=== PATIENT | female | born 1955 | race Caucasian/White ===

== ENCOUNTER 2017-10-13 01:35 | Emergency (ER) | payer BC ==
[~2017-10-13] VITALS: Ht 165.1 cm; Wt 95.2 kg
[~2017-10-13 01:35] MED LIST: ASPIR 8181 MG; AZITHROMYCIN250 MG PO; NORCO 5-325 TA1 EACH PO; ZOFRAN ODT4 MG PO
[2017-10-13] MEDS ORDERED: BENADRYL25 MG PO (02:16)
--- NOTE | 2017-10-13 17:58 | EKG ---
[facility] [address] [facility] [place], [place] [address] Signed Normal sinus rhythm Possible Left atrial enlargement Nonspecific ST and T wave abnormality Abnormal ECG No previous ECGs available Confirmed by WILLA LASSITER MD ([id number]) on 10/13/2017 5:58:28 PM Electronically Signed By: WILLA LASSITER MD 10/13/17 1758 PATIENT NAME: NICANOR SALDANA Electrocardiogram DATE OF : 55 PHYSICIAN: WILLA LASSITER MD REPORT #: [id number] REPORT IS CONFIDENTIAL AND NOT TO BE RELEASED WITHOUT AUTHORIZATION
== END 2017-10-13 03:44 | disposition home or self-care (01) ==
LOC: ED 01:35
DX: R07.89 Other chest pain (principal); B34.9 Viral infection, unspecified; F17.200 Nicotine dependence, unspecified, uncomplicated; Z90.49 Acquired absence of other specified parts of digestive tract; Z98.51 Tubal ligation status; Z88.2 Allergy status to sulfonamides; Z79.82 Long term (current) use of aspirin
CPT/HCPCS: 71046; 80053; 81001; 84484; 85025; 85379; 93005; 93010; 99284

== ENCOUNTER 2021-07-15 23:31 | Emergency (ER) | payer BC ==
[~2021-07-15 23:31] MED LIST changes: +BENADRYL25 MG PO
--- NOTE | 2021-07-16 13:23 | EKG ---
[facility] [address] [facility] [place] [address] Signed Normal sinus rhythm Possible Left atrial enlargement Left anterior fascicular block T wave abnormality, consider lateral ischemia Abnormal ECG When compared with ECG of 13-OCT-2017 01:41, Left anterior fascicular block is now present Confirmed by TITUS ESPARZA DO ([id number]) on 07/16/2021 1:23:14 PM Electronically Signed By: TITUS ESPARZA DO 07/16/21 1323 PATIENT NAME: NICANOR SALDANA Electrocardiogram DATE OF : 55 PHYSICIAN: TITUS ESPARZA DO REPORT #: [id number] REPORT IS CONFIDENTIAL AND NOT TO BE RELEASED WITHOUT AUTHORIZATION
== END 2021-07-16 03:12 | disposition home or self-care (01) ==
LOC: ED 23:31
DX: R55 Syncope and collapse (principal); F17.200 Nicotine dependence, unspecified, uncomplicated; Z88.2 Allergy status to sulfonamides
CPT/HCPCS: 62270; 70450; 71045; 80053; 82945; 84157; 84484; 85025; 89051; 93005; 93010; 99285-25; J7030

== ENCOUNTER 2024-06-26 10:08 | Inpatient (IN) | payer MEDICARE ==
[~2024-06-26] VITALS: Ht 165.1 cm; Wt 66.7 kg
[2024-06-26] VITALS (7 sets, daily range): BP systolic 88–108; BP diastolic 50–72
[~2024-06-26 10:08] MED LIST changes: +ONDANSETRON ODT8 MG PO; +SEVOFLURANE 250 ML BTL INH ONE
[2024-06-26] MEDS ORDERED: PANTOPRAZOLE SODIUM 40 MG/10 ML VIAL IV ONE (10:15)
[2024-06-26] MEDS ORDERED: ondansetron HCL 4 MG/2 ML VIAL IV ONE (10:15)
[2024-06-26] MEDS ORDERED: NOREPINEPHRINE BITARTRATE 250 ML IV SCH (10:15)
[2024-06-26] MEDS ORDERED: fentaNYL citrate 100 MCG/2 ML VIAL IV ONE ×2 (10:15→12:30)
[2024-06-26 10:33] LABS: BASE EXCESS, BLOOD GAS -6.5 mmol/L (-2-2); HCO3, BLOOD GAS 16.7 mmol/L (22-26); OXYGEN RECEIVED, BLOOD GAS RA; PCO2, BLOOD GAS 22.8 mmHg (35-45); PH, BLOOD GAS 7.46 (7.35-7.45); PO2, BLOOD GAS 83 mmHg (80-100); TOTAL CO2, BLOOD GAS 17.4
[2024-06-26 10:40] LABS: BASOPHILS 0.7 % (0-2); EOSINOPHILS 0.3 % (0-6); HEMATOCRIT 35.1 % (35.0-50.0); HEMOGLOBIN 11.6 g/dL (12.0-18.0); LYMPHOCYTES 17.3 % (24-44); MCH 32.2 (27-36); MCV 97.7 fl (81-99); MONOCYTES 5.6 % (0-12); NEUTROPHILS 76.1 % (39-80); RBC 3.59 M/ul (4.3-5.7); RDW 15.6 (10.5-15.0)
[2024-06-26 10:49] LABS: INR 1.08 (0.80-1.30); PROTIME 13.6 Sec (11.2-14.2)
[2024-06-26 10:56] LABS: LACTIC ACID, BLOOD 4.8 mmol/L (0.4-2.0)
[2024-06-26 11:01] LABS: ALBUMIN 2.1 g/dL (3.4-5.0); ALBUMIN/GLOBULIN RATIO 0.66 (1.1-2.4); ANION GAP 16.7 (7-21); BILIRUBIN, TOTAL 0.3 ng/dL (0.2-1.0); BUN/CREATININE RATIO 42.7 (6.0-28.6); CALCIUM 7.8 mg/dL (8.5-10.1); CREATININE, SERUM 0.96 mg/dL (0.55-1.02); POTASSIUM 4.7 mmol/L (3.5-5.1); PROTEIN, TOTAL 5.3 g/dL (6.4-8.2)
[2024-06-26 11:04] LABS: PLATELET COUNT 188 K/uL (140-440)
[2024-06-26 11:07] LABS: ABO A; ANTIBODY SCREEN NEGATIVE; RH POSITIVE
[2024-06-26 11:15] LABS: IS CROSSMATCH COMPATIBLE
[2024-06-26] MEDS ORDERED: ADULT LOW DOSE81 MG PO (11:36)
[2024-06-26 11:40] LABS: ABO A; RH POSITIVE
[2024-06-26] MEDS ORDERED: SODIUM CHLORIDE 0.9% 1,000 ML IV PRN (12:15)
[2024-06-26] MEDS ORDERED: SUCCINYLCHOLINE IN 0.9% NACL 200 MG/10 ML SYRINGE ONE (14:57)
[2024-06-26] MEDS ORDERED: DEXAMETHASONE SOD PHOS 4 MG/ML VIAL ONE (14:57)
[2024-06-26] MEDS ORDERED: propofoL 200 MG/20 ML VIAL ONE (14:57)
[2024-06-26] MEDS ORDERED: LIDOCAINE HCL 2% 5 ML SDV ONE (14:57)
[2024-06-26] MEDS ORDERED: ROCURONIUM BROMIDE 50 MG/5 ML SYR ONE (14:57)
[2024-06-26] MEDS ORDERED: ondansetron HCL 4 MG/2 ML VIAL ONE (14:57)
[2024-06-26] MEDS ORDERED: fentaNYL citrate 100 MCG/2 ML VIAL ONE (14:57)
[2024-06-26] MEDS ORDERED: PHENYLEPHRINE HCL 10 MG/ML VIAL ONE (15:21)
[2024-06-26 16:04] LABS: IS CROSSMATCH COMPATIBLE
[2024-06-26] MEDS ORDERED: SUGAMMADEX SODIUM 200 MG/2 ML ML ONE (16:12)
--- NOTE | 2024-06-26 16:21 | CONS ---
[facility] [address] [place], [place] [address] Signed DATE OF CONSULTATION: 06/26/2024 CHIEF COMPLAINT: Rectal bleeding. HISTORY OF PRESENT ILLNESS: Nicanor is a 69-year-old female who said she has had peptic ulcer disease many, many years ago requiring upper endoscopy. She thinks she has been having rectal bleeding for about a month. For some reason, she decided to treat that with aspirin. They found her down at home in the bathroom. The EMS brought her to our local emergency room. Initially, her blood pressures were soft. She required some IV fluids and later got a unit of blood. Her hemoglobin is 11.6 at this time. The repeat hemoglobin does not appear to be back yet. Her vital signs have improved. She is alert, awake and interactive at this point. The CT scan of the head and cervical spine were unremarkable. Chest x-ray was unremarkable. The CT scan of abdomen and pelvis shows some thickening to the wall of the intestine where the stomach meets the duodenum. There is no free air. There is no extravasation of contrast. She also has significant peripheral arterial disease. The hospitalist service of course was consulted to see her. She has had a second unit of blood, this has been ordered. I have been asked to see her as a local general surgeon on-call here in the emergency room. I have been asked to perform her upper endoscopy. In the meantime, she has remained hemodynamically stable. Her granddaughter is with her as well. PAST MEDICAL HISTORY: Cardiac arrest many years ago, peptic ulcer disease many years ago. PAST SURGICAL HISTORY: Defibrillator placement, appendectomy, cholecystectomy, bilateral tubal ligation, tonsillectomy and adenectomy, , but no prior colonoscopies. SOCIAL HISTORY: She still smokes a pack of cigarettes a day. She does not drink. Dr. Mikki Keene is her primary care provider. She prefers the [facility]. She has two children. One lives in [place]. The other lives locally. However, her granddaughter Sagrario is the decision maker and would be her one to consult should Nicanor not be able to speak for herself. She explained that very carefully to me in the presence of her other granddaughter. Phone number for Sagrario is [phone]. She currently is a full code, but she said she would modify that depending on the medical input we gave her. She is and does drive. 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 REVIEW OF SYSTEMS: She had 10 systems reviewed and she did mention the Fabry's disease. ALLERGIES: Sulfa. MEDICATIONS: Aspirin p.r.n. PHYSICAL EXAMINATION: VITAL SIGNS: Her blood pressure is 103/62, heart rate 73, respiratory rate 15. She is 99.4 degrees. She is 98% on oxygen. She is 5 feet 5 inches tall at 150 pounds. GENERAL: Nicanor is a 69-year-old female, who is lying supine, semi-recumbent in her ER bed. Her granddaughter is at the bedside. She is in no acute distress. She is alert, awake, and interactive. LUNGS: Clear to auscultation bilaterally. HEART: Regular rate and rhythm with murmur. ABDOMEN: Flat but she is tender in the epigastric area. LABORATORY DATA: Her white blood cell count 14.6, hemoglobin 11.6, mean cell volume 97, platelets 188. BUN up at 41, creatinine 0.96. INR 1.08. PH 7.46, pCO2 was 22, her bicarb was 16. She was 99% on room air. Her lactic acid was 4.8. Her liver function tests are negative. Albumin is 2.1. RADIOGRAPHIC STUDIES: A chest x-ray was unremarkable. The CT scan of the head and spine were unremarkable. The CT scan of the abdomen shows the thickened intestinal wall where the stomach meets the pyloric bulb. There is no free air. There is no extravasation but she does have peripheral arterial disease. ASSESSMENT AND PLAN: Nicanor is a 69-year-old female who presents with what appears to be a recurrent duodenal ulcer resulting in her upper GI bleed probably for a month now. Unfortunately, she has been treating this with aspirin and she continues to smoke. She is being admitted to our Internal Medicine service, but I have been asked to see her as a local general surgeon inspector balance wheel motion for upper endoscopy. I was asked to do it expeditiously, so I have canceled my afternoon office and I have met with Nicanor here in the ER. I reviewed with her upper endoscopy. There is risk including, but not limited to gas bloating, crampy abdominal pain, bleeding, perforation requiring surgery, and missed diagnosis. She is also aware that bleeding ulcers are often treated by interventional radiologist with embolization. Electronically Signed By: DEVORAH SALGADO MD 06/26/24 0812 PATIENT NAME: NICANOR SALDANA CONSULTATION DATE OF : 55 REPORT #: [id number] PHYSICIAN: DEVORAH SALGADO MD PCP: MIKKI KEENE MD REPORT IS CONFIDENTIAL AND NOT TO BE RELEASED WITHOUT AUTHORIZATION [address] [place], [place] [address] Signed She understands the need for monitored anesthesia care for her upper procedure. She has expressed understanding and would like to proceed. MD KENNA Elias/ANUPL /[id number] cc: MD Devorah Devlin MD Copies: DEVORAH SALGADO MD ~ Electronically Signed By: DEVORAH SALGADO MD 06/26/24 1621 PATIENT NAME: NICANOR SALDANA CONSULTATION DATE OF : 55 REPORT #: [id number] PHYSICIAN: DEVORAH SALGADO MD PCP: MIKKI KEENE MD REPORT IS CONFIDENTIAL AND NOT TO BE RELEASED WITHOUT AUTHORIZATION
[2024-06-26] MEDS ORDERED: DEXTROSE 5% - LACTATED RINGERS 1,000 ML IV SCH (16:30)
[2024-06-26] MEDS ORDERED: CALCIUM GLUCONATE 1,000 MG/10 ML VIAL IV ONE (16:45)
[2024-06-26] MEDS ORDERED: ondansetron HCL 4 MG/2 ML VIAL IV PRN (17:00)
[2024-06-26] MEDS ORDERED: Calcium Gluconate in NS 1,000 MG/50 ML BAG IV SCH (18:00)
[2024-06-26] MEDS ORDERED: BENADRYL25 MG PO (18:02)
[2024-06-26] MEDS ORDERED: ADVIL200 MG PO (18:03)
[2024-06-26 18:12] LABS: BASOPHILS 0.2 % (0-2); HEMATOCRIT 34.6 % (35.0-50.0); HEMOGLOBIN 11.6 g/dL (12.0-18.0); LYMPHOCYTES 4.5 % (24-44); MCH 32.1 (27-36); MCHC 33.6 g/dl (30-36); MCV 95.6 fl (81-99); MONOCYTES 1.7 % (0-12); NEUTROPHILS 93.6 % (39-80); PLATELET COUNT 145 K/uL (140-440); RBC 3.62 M/ul (4.3-5.7); RDW 15.3 (10.5-15.0)
[2024-06-26 18:25] LABS: MAGNESIUM 1.5 mg/dL (1.8-2.4); PHOSPHORUS, INORGANIC 3.8 mg/dL (2.5-4.9)
[2024-06-26] MEDS ORDERED: PANTOPRAZOLE SODIUM 40 MG/10 ML VIAL IV SCH (21:00)
[2024-06-26] MEDS ORDERED: ACETAMINOPHEN 325 MG TAB PO PRN (21:15)
[2024-06-26] MEDS ORDERED: MAGNESIUM SULFATE 2 GM/50 ML BAG IV ONE (21:15)
[2024-06-26 22:50] LABS: BASOPHILS 0.3 % (0-2); EOSINOPHILS 0.1 % (0-6); HEMATOCRIT 32.9 % (35.0-50.0); HEMOGLOBIN 10.7 g/dL (12.0-18.0); LYMPHOCYTES 5.6 % (24-44); MCH 31.1 (27-36); MCHC 32.5 g/dl (30-36); MCV 95.6 fl (81-99); MONOCYTES 1.8 % (0-12); NEUTROPHILS 92.2 % (39-80); PLATELET COUNT 141 K/uL (140-440); RBC 3.44 M/ul (4.3-5.7); RDW 15.2 (10.5-15.0)
[2024-06-27] VITALS (11 sets, daily range): BP systolic 89–114; BP diastolic 48–57
[2024-06-27 05:51] LABS: BASOPHILS 0.4 % (0-2); HEMATOCRIT 31.1 % (35.0-50.0); HEMOGLOBIN 10.7 g/dL (12.0-18.0); LYMPHOCYTES 11.8 % (24-44); MCH 32.2 (27-36); MCHC 34.3 g/dl (30-36); MCV 93.8 fl (81-99); MONOCYTES 5.7 % (0-12); NEUTROPHILS 82.1 % (39-80); PLATELET COUNT 133 K/uL (140-440); RBC 3.32 M/ul (4.3-5.7); RDW 15.3 (10.5-15.0)
[2024-06-27 06:01] LABS: ANION GAP 10.7 (7-21); BUN/CREATININE RATIO 43.37 (6.0-28.6); CALCIUM 8.5 mg/dL (8.5-10.1); CREATININE, SERUM 0.83 mg/dL (0.55-1.02); POTASSIUM 4.7 mmol/L (3.5-5.1)
--- NOTE | 2024-06-27 07:24 | OR ---
[facility] [address] [place], [place] [address] Signed DATE OF OPERATION: 06/26/2024 SURGEON: Devorah Pillai MD PREOPERATIVE DIAGNOSIS: Upper GI bleed. POSTOPERATIVE DIAGNOSIS: Bleeding duodenal ulcer (bulb). PROCEDURES: Esophagogastroduodenoscopy with application of clips x5 with hemostasis. ESTIMATED BLOOD LOSS: 50 mL. INDICATIONS: Nicanor is a 69-year-old female who tells me in the remote past she had peptic ulcer disease. She is telling us today that she has had blood in her bowel movements for about a month. She was having epigastric abdominal pain and decided to treat that with aspirin. Her family found her down in the bathroom. The EMS brought her to our local emergency room. She was evaluated and resuscitated in the emergency room. Eventually they discovered that she had thickening around where the stomach joins the pyloric bulb. There was no perforation that could be ascertained. No active extravasation. She responded to some IV fluids and a unit of packed red blood cells. She was admitted to the Internal Medicine service. I have been asked to see her expeditiously in the emergency room as a local general surgeon general education professor for upper endoscopy. I met with Nicanor and her granddaughter. We reviewed upper endoscopy. Nicanor remembers having an upper endoscopy many, many years ago. She understands the nature of the test. There is risk including, but not limited to gas bloating, crampy abdominal pain, bleeding, perforation requiring surgery, and missed diagnosis. We also reviewed the need for monitored anesthesia care with endotracheal tube intubation given her acute upper GI bleed. She had expressed understanding and wished to proceed. She told me she was more less a full code and unless we directed her medically otherwise. She also said if she was unable to speak for herself that her granddaughter Moose would be the one in charge. This was also in the presence of her other granddaughter. She had expressed understanding and wished to proceed. PROCEDURE IN DETAIL: Nicanor was taken into our endoscopy suite and placed in a supine semi-recumbent position Electronically Signed By: DEVORAH PILLAI MD 06/27/24 0724 PATIENT NAME: NICANOR SALDANA OPERATIVE REPORT DATE OF : 55 REPORT #: [id number] PHYSICIAN: DEVORAH PILLAI MD PCP: PATRICK DELUCA MD REPORT IS CONFIDENTIAL AND NOT TO BE RELEASED WITHOUT AUTHORIZATION [facility] [address] [place], [place] [address] Signed under general endotracheal tube anesthesia. A bite block was utilized for the case. The adult gastroscope was introduced and slowly advanced into the stomach. We went out just as we came into the pyloric channel. We could see a large clot just inside the pyloric channel. We went back and suctioned out as much blood as we could from the fundus. We got almost all of that removed. It does not appear that she has an obvious hiatal hernia. We went back and ran our scope out into the duodenum and it was fine. We went back then and scraped the clot off the ulcer and of course, she had pulsatile bright red blood. The first clip slowed the bleeding quite significantly. As we suctioned and worked, we put sequential clips on either side until we had four [address]. Amazingly, there was still a little bleeding just to the side of the clip. We put our fifth clip and turned it, came across that and that provided hemostasis. We washed it for quite some time and irrigated it afterwards without any ongoing bleeding. We decided not to inject any epinephrine or cauterizer, treated with any topical agents. The scope was withdrawn in the stomach. The gas was suctioned out. The scope was completely withdrawn. Nicanor tolerated the procedure quite well. RECOMMENDATIONS: Nicanor is going to be returning to the ICU under the service of our Internal Medicine physicians. Devorah Pillai MD ALB/MODL /[id number] cc: Devorah Pillai MD Copies: DEVORAH PILLAI MD ~ Electronically Signed By: DEVORAH PILLAI MD 06/27/24 0724 PATIENT NAME: NICANOR SALDANA OPERATIVE REPORT DATE OF : 55 REPORT #: [id number] PHYSICIAN: DEVORAH PILLAI MD PCP: PATRICK DELUCA MD REPORT IS CONFIDENTIAL AND NOT TO BE RELEASED WITHOUT AUTHORIZATION
[2024-06-27 09:43] LABS: IS CROSSMATCH COMPATIBLE
[2024-06-27] MEDS ORDERED: LIDOCAINE HCL 4% 1 EACH PATCH TD ONE (11:45)
[2024-06-27] MEDS ORDERED: PHARMACY RENAL DOSE ADJUSTMENT 1 DOSE MISC PO SCH (12:00)
[2024-06-27] MEDS ORDERED: LIDOCAINE PATCH REMOVAL 1 EA TD SCH (21:00)
== END 2024-06-27 12:07 | disposition short-term general hospital (02) | DRG 378 ==
LOC: ED 10:08 → CCU 13:59
PROVIDERS: Colon & Rectal Surgery; Emergency Medicine; ADMIT Student in an Organized Health Care Education/Training Program; ATTEND Student in an Organized Health Care Education/Training Program
PROC: 30233N1 Transfusion of Nonautologous Red Blood Cells into Peripheral Vein, Percutaneous Approach (ICD-10-PCS; 2024-06-26)
PROC: 0W3P8ZZ Control Bleeding in Gastrointestinal Tract, Via Natural or Artificial Opening Endoscopic (ICD-10-PCS; 2024-06-26)
PROC: 30233R1 Transfusion of Nonautologous Platelets into Peripheral Vein, Percutaneous Approach (ICD-10-PCS; principal; 2024-06-26 14:30)
DX: K26.4 Chronic or unspecified duodenal ulcer with hemorrhage (principal); E87.20 Acidosis, unspecified; I73.9 Peripheral vascular disease, unspecified; F17.210 Nicotine dependence, cigarettes, uncomplicated; Z88.2 Allergy status to sulfonamides; Z86.74 Personal history of sudden cardiac arrest; Z95.810 Presence of automatic (implantable) cardiac defibrillator; Z90.49 Acquired absence of other specified parts of digestive tract; Z98.51 Tubal ligation status
CPT/HCPCS: 36415; 36600; 70450; 71045; 72125; 74177; 80048; 80053; 82553; 82803; 83605; 83690; 83735; 84100; 85025; 85060; 85610; 86850; 86900; 86901; 86922; A9270; J0330; J1100; J2003; J2371; J2405; J2470; J2704; J3010; J3475; J3490; J7030; J7121; P9035; Q9967